=== PATIENT | female | born 1975 | race American Indian/Alaskan Native ===

== ENCOUNTER 2017-12-25 20:31 | Emergency (ER) | payer SELFPAY ==
[2017-12-25] MEDS ORDERED: PROVENTIL IH ONE (20:42)
[2017-12-25] MEDS ORDERED: ATROVENT IH ONE ×2 (20:45→20:47)
--- NOTE | 2017-12-25 22:12 | Emergency Department Report ---
ED Asthma HPI - General Chief Complaint: Adult Asthma Stated Complaint: SOB/ANISHA Time Seen by Provider: 12/25/17 21:43 Source: patient Mode of arrival: Ambulatory Limitations: No Limitations - History of Present Illness Initial Comments: Patient 42-year-old -[place] female with a history of asthma presents for asthma exacerbation today patient takes states cough wheezing 2 days out of albuterol patient denies dizziness no nausea vomiting no chest pain shortness of breath after nebs given in triage vital signs noted as improved patient Ambulatory in ed without increased shortness of breath or wheezing MD Complaint: wheezing Onset/Timin -: days(s) Asthma History: childhood onset Severity: moderate Context: recent URI Associated Symptoms: productive cough (white thick ). denies: fever, chest pain , leg edema, syncope Treatments Prior to Arrival: inhaled bronchodilator - Related Data Current Asthma Therapy: none, inhaled bronchodilator, inhaled steroid Home Medications Medication Instructions Recorded Confirmed Last Taken Loratadine [Claritin] 5 mg PO QDAY 03/26/14 03/20/15 03/19/15 Previous Rx's Medication Instructions Recorded Last Taken Type Ferrous Sulfate [Feosol 325 MG tab] 325 mg PO BID #60 tablet 03/28/14 03/19/15 Rx ALBUTEROL NEB's [Proventil 0.083% 2.5 mg IH TID PRN #25 neb 03/20/15 Unknown Rx NEBS] Albuterol Sulfate [Ventolin HFA] 2 puff IH Q4H PRN #1 hfa.aer.ad 03/20/15 Unknown Rx Fluticasone/Salmeterol [Advair 1 puff IH BID 30 Days disk.w.dev 03/20/15 Unknown Rx Diskus 250-50 mcg] Prednisone [Prednisone 10 mg 10 mg PO .TAPER #1 tab.ds.pk 03/20/15 Unknown Rx (6-Day Pack, 21 Tabs)] ALBUTEROL Inhaler [ProAir HFA 2 puff IH QID PRN #1 inhalation 12/25/17 Unknown Rx Inhaler] ALBUTEROL NEB's [Proventil 0.083% 2.5 mg IH QID PRN #25 vial 12/25/17 Unknown Rx NEBS] Azithromycin [Zithromax Z-YOLETTE] 250 mg PO DAILY #6 tab 12/25/17 Unknown Rx Fluticasone (Nf) [Flovent 220 2 puff IH BID #1 puff 12/25/17 Unknown Rx MCG/PUFF HFA] predniSONE [Deltasone] 40 mg PO QDAY #10 tab 12/25/17 Unknown Rx Allergies Allergy/AdvReac Type Severity Reaction Status Date / Time No Known Allergies Allergy Verified 09/14/13 23:11 ED Review of Systems ROS: Stated complaint: SOB/ANISHA Other details as noted in HPI Constitutional: denies: chills, fever Eyes: denies: eye pain, eye discharge, vision change ENT: congestion. denies: ear pain, throat pain Respiratory: cough, shortness of breath (the), wheezing Cardiovascular: denies: chest pain, palpitations Endocrine: no symptoms reported Gastrointestinal: denies: abdominal pain, nausea, diarrhea Genitourinary: denies: urgency, dysuria, discharge Musculoskeletal: denies: back pain, joint swelling, arthralgia Skin: denies: rash, lesions Neurological: denies: headache, weakness, paresthesias Psychiatric: denies: anxiety, depression Hematological/Lymphatic: denies: easy bleeding, easy bruising ED Past Medical Hx - Past Medical History Previous Medical History?: Yes Hx Asthma: Yes Additional medical history: 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 - Social History Smoking Status: Never Smoker - Medications Home Medications: Home Medications Medication Instructions Recorded Confirmed Last Taken Type Loratadine [Claritin] 5 mg PO QDAY 03/26/14 03/20/15 03/19/15 History Ferrous Sulfate [Feosol 325 MG tab] 325 mg PO BID #60 tablet 03/28/14 03/20/15 03/19/15 Rx ALBUTEROL NEB's [Proventil 0.083% 2.5 mg IH TID PRN #25 neb 03/20/15 Unknown Rx NEBS] Albuterol Sulfate [Ventolin HFA] 2 puff IH Q4H PRN #1 hfa.aer.ad 03/20/15 Unknown Rx Fluticasone/Salmeterol [Advair 1 puff IH BID 30 Days disk.w.dev 03/20/15 Unknown Rx Diskus 250-50 mcg] Prednisone [Prednisone 10 mg 10 mg PO .TAPER #1 tab.ds.pk 03/20/15 Unknown Rx (6-Day Pack, 21 Tabs)] ALBUTEROL Inhaler [ProAir HFA 2 puff IH QID PRN #1 inhalation 12/25/17 Unknown Rx Inhaler] ALBUTEROL NEB's [Proventil 0.083% 2.5 mg IH QID PRN #25 vial 12/25/17 Unknown Rx NEBS] Azithromycin [Zithromax Z-YOLETTE] 250 mg PO DAILY #6 tab 12/25/17 Unknown Rx Fluticasone (Nf) [Flovent 220 2 puff IH BID #1 puff 12/25/17 Unknown Rx MCG/PUFF HFA] predniSONE [Deltasone] 40 mg PO QDAY #10 tab 12/25/17 Unknown Rx ED Physical Exam - General Limitations: No Limitations General appearance: alert, in no apparent distress - Head Head exam: Present: atraumatic, normocephalic - Eye Eye exam: Present: normal appearance, PERRL, EOMI Pupils: Present: normal accommodation - ENT ENT exam: Present: normal exam, normal orophraynx, mucous membranes moist, TM's normal bilaterally - Neck Neck exam: Present: normal inspection, full ROM. Absent: tenderness, meningismus, lymphadenopathy, thyromegaly - Respiratory Respiratory exam: Present: normal lung sounds bilaterally. Absent: respiratory distress, wheezes, rhonchi, stridor, chest wall tenderness - Cardiovascular Cardiovascular Exam: Present: regular rate, normal rhythm, normal heart sounds. Absent: systolic murmur, diastolic murmur, rubs, gallop - GI/Abdominal GI/Abdominal exam: Present: soft, normal bowel sounds. Absent: distended, tenderness, guarding, rebound, rigid, organomegaly, mass, bruit, pulsatile mass , hernia - Rectal Rectal exam: Present: deferred - Extremities Exam Extremities exam: Present: normal inspection (A) - Back Exam Back exam: Present: normal inspection - Neurological Exam Neurological exam: Present: alert, oriented X3, CN II-XII intact, normal gait, reflexes normal - Psychiatric Psychiatric exam: Present: normal affect, normal mood - Skin Skin exam: Present: warm (knee), dry, intact, normal color. Absent: rash ED Course Vital Signs 12/25/17 20:37 Temperature 97.7 F Pulse Rate 95 H Respiratory 24 Rate Blood Pressure 126/85 O2 Sat by Pulse 99 Oximetry ED Medical Decision Making - Medical Decision Making Patient 42-year-old -[place] female with a history of asthma presents for asthma exacerbation today patient takes states cough wheezing 2 days out of albuterol patient denies dizziness no nausea vomiting no chest pain shortness of breath after nebs given in triage vital signs noted as improved patient Ambulatory in ed without increased shortness of breath or wheezing, reassessment pt appears well denies sob lung sounds clear at this time no wheezing no use of accessory muscle pt ambulated fast track unit and back to room with out increased sob or wheezing states breathing is to baseline, plan: dc to home refill albuterol nebs, prednisone, zpack, flovent, pt will follow up with pcp in 2-3 days, pt will follow up with pcp in 2-3 days or return to ed if symptoms worsen. pt verbalized agreement and understanding of same. Critical care attestation.: If time is entered above; I have spent that time in minutes in the direct care of this critically ill patient, excluding procedure time. ED Disposition Clinical Impression: Bronchitis Asthma Qualifiers: Asthma severity: moderate Asthma persistence: persistent Asthma complication type: with acute exacerbation Qualified Code(s): J45.41 - Moderate persistent asthma with (acute) exacerbation URI (upper respiratory infection) Qualifiers: URI type: unspecified viral URI Qualified Code(s): J06.9 - Acute upper respiratory infection, unspecified Disposition: DC-01 TO HOME OR SELFCARE Is pt being admited?: No Does the pt Need Aspirin: No Condition: Good Instructions: Asthma (ED), Chronic Bronchitis (ED) Prescriptions: ALBUTEROL Inhaler [ProAir HFA Inhaler] 2 puff IH QID PRN #1 inhalation PRN Reason: Shortness Of Breath ALBUTEROL NEB's [Proventil 0.083% NEBS] 2.5 mg IH QID PRN #25 vial PRN Reason: shortness or breath Azithromycin [Zithromax Z-YOLETTE] 250 mg PO DAILY #6 tab Fluticasone (Nf) [Flovent 220 MCG/PUFF HFA] 2 puff IH BID #1 puff predniSONE [Deltasone] 40 mg PO QDAY #10 tab Referrals: BECCA FRIEDMAN [Referring] - 3-5 Days Forms: Work/School Release Form(ED)
[2017-12-25 22:32] VITALS: BP 105/73
== END 2017-12-25 22:33 | disposition home or self-care (01) ==
LOC: ED 20:31
DX: J45.41 Moderate persistent asthma with (acute) exacerbation (principal); J40 Bronchitis, not specified as acute or chronic; J06.9 Acute upper respiratory infection, unspecified
CPT/HCPCS: 94640; 96372; 99282; J2930